=== PATIENT | female | born 1995 | race African-American/Black ===

== ENCOUNTER 2020-08-09 17:57 | Emergency (ER) | payer OTHER ==
[~2020-08-09] VITALS: Ht 149.9 cm; Wt 50.8 kg
--- NOTE | 2020-08-09 18:13 | Emergency Room Report ---
History of Present Illness General Chief Complaint: Female Urogenital Problems Source: Patient (Neeru Sharif) Present Illness HPI 25-year-old female presents to the emergency department complaining of 3 out of 10 severity low back pain in addition to urinary frequency x1 week. She denies dysuria or hematuria. Denies fevers or chills. She denies suspicion of . Patient denies vaginal discharge. Patient denies abdominal pain or tenderness. She denies nausea or vomiting. She denies headache. She denies constipation or diarrhea. (Neeru Sharif) Allergies: Coded Allergies: No Known Allergies (Unverified , 08/09/20) COVID-19 Screening Contact w/high risk pt: No Experienced COVID-19 symptoms?: No COVID-19 Testing performed CHECK EXAMINER: No (Neeru Sharif) Patient History Past Medical History: see triage record Past Surgical History: none Pertinent Family History: none Last Menstrual Period: 06/25/20 Reviewed Nursing Documentation: PMH: Agreed; PSxH: Agreed (Neeru Sharif) Nursing Documentation-PMH Past Medical History: No Stated History (Neeru Sharif) Review of Systems All Other Systems: negative except mentioned in HPI (Neeru Sharif) Physical Exam Vital Signs Date Time Temp Pulse Resp B/P (MAP) Pulse Ox O2 Delivery O2 Flow Rate FiO2 08/09/20 18:00 98.8 100 16 119/72 (88) 99 Room Air Sp02 EP Interpretation: reviewed, normal General Appearance: no apparent distress, alert, GCS 15, non-toxic Head: normocephalic, atraumatic Eyes: bilateral eye normal inspection, bilateral eye PERRL ENT: hearing grossly normal, normal voice Neck: full range of motion Respiratory: lungs clear, normal breath sounds, speaking full sentences Cardiovascular #1: regular rate, rhythm Gastrointestinal: normal bowel sounds, non tender, soft, non-distended Genitourinary: normal inspection, no CVA tenderness Musculoskeletal: back normal, normal range of motion, gait/station normal, non- tender Neurologic: alert, motor strength/tone normal, oriented x3, sensory intact, responsive, speech normal Psychiatric: judgement/insight normal Skin: normal color (Neeru Sharif) Medical Decision Making PA Attestation Dr. Barragan is my supervising Physician whom patient management has been discussed with. (Neeru Sharif) Diagnostic Impression: Primary Impression: Urinary frequency Additional Impressions: Qualified Codes: Z34.90 - Encounter for supervision of normal , unspecified, unspecified trimester UTI (urinary tract infection) Qualified Codes: N39.0 - Urinary tract infection, site not specified ER Course 25-year-old female presents to the emergency department complaining of 3 out of 10 severity low back pain in addition to urinary frequency x1 week. She denies dysuria or hematuria. Denies fevers or chills. She denies suspicion of . Patient denies vaginal discharge. Patient denies abdominal pain or tenderness. She denies nausea or vomiting. She denies headache. She denies constipation or diarrhea. Ddx considered but are not limited to UTi , Pyelo, STI, Stone, Cystitis Vital signs: are WNL, pt. is afebrile H&PE are most consistent with UTI ORDERS: - UA labs are attached ED INTERVENTIONS: None required at this time. DISCHARGE: At this time pt. is stable for d/c to home. Will provide printed patient care instructions, and any necessary prescriptions. Care plan and follow up instructions have been discussed with the patient prior to discharge. (Neeru Sharif) ER Course 25-year-old female here with UTI. U is positive. Ultrasound confirms intrauterine . No heart activity found yet as is early. Unlikely ruptured ectopic at this time point, patients abdomen is not peritoneal, no significant tenderness. She has remained hemodynamically stable in ED. The patients presentation is not consistent with hemorrhagic ovarian cyst or torsion, and has no significant tenderness on exam. The patient appears stable for discharge home and follow up here in the ED in 12 -24 hrs for repeat HCG quant testing, reevaluation and further treatment. Will DC with Keflex. UCx will be sent. Pt advised to follow up with [facility] in AM for referral for care. She verbalizes her understanding of this. Counseled patient to stop smoking marijuna and to stop drinking alcohol. She is unwilling to wait for bhcg quant and states she needs to go and would like a call at [phone]. (Mulu Barragan D.O.) CT/MRI/US Diagnostic Results CT/MRI/US Diagnostic Results : Imaging Test Ordered: US Pelvic OB Impression official radiology report is pending at time of sign out (Neeru Sharif) CT/MRI/US Diagnostic Results : Impression US OB Transvaginal EXAM: US Pelvis Transvaginal FINDINGS: Uterus: Measures 8.8 x 3.8 x 4.3 cm. Gestational sac identified within the endometrial cavity, with mean sac diameter measuring 1.59 cm. Yolk sac noted. No pole identified on this exam. Cervix is long and closed. Placenta/amniotic fluid: Cannot be adequately evaluated due to the early gestational age. Ovaries: The right ovary measures 2.3 x 2.4 x 3.7 cm. Probable corpus luteum in the right ovary. The left ovary measures 2.5 x 1.9 x 2.7 cm. The ovaries demonstrate normal color flow. Other: No free fluid is identified. No adnexal mass. LMP: 06/25/2020 GA by LMP: 6 weeks 3 days ALONDRA by LMP: 04/01/2021 Average ultrasound age: 5 weeks 6 days ALONDRA by ultrasound: 04/05/2021 IMPRESSION: Intrauterine gestational sac with yolk sac noted. No pole identified at this time. Findings may be due to early stage of . Please correlate with serial beta hCG measurements and short-term follow- up exam if clinically indicated. Dictated By: Thuan Contreras MD (Mulu Barragan D.O.) Last Vital Signs Date Time Temp Pulse Resp B/P (MAP) Pulse Ox O2 Delivery O2 Flow Rate FiO2 08/09/20 18:00 98.8 100 16 119/72 (88) 99 Room Air (Neeru Sharif) Reevaluation Time: 20:22 Status: improved (Mulu Barragan D.O.) Disposition: HOME, SELF-CARE Admit Decision Time: 20:22 (Mulu Barragan D.O.) Condition: Stable Scripts Cephalexin* (KEFLEX*) 500 Mg Capsule 500 MG ORAL EVERY 12 HOURS, #14 CAP 0 Refills Prov: Mulu Barragan D.O. 08/09/20 Patient Instructions: Urinary Tract Infection Additional Instructions: Take medications as directed. Follow up with a OBGYN within 3 days, even if your symptoms have resolved. To have repeat Hcg Quant blood work and US performed Return sooner to ED if new symptoms occur, or current symptoms become worse. - Please note that this Emergency Department Report was dictated using [employer] machine operator technology software, occasionally this can lead to erroneous entry secondary to interpretation by the dictation equipment. Neeru Sharif Aug 09, 2020 18:13 Mulu Barragan D.O. Aug 09, 2020 20:26
[2020-08-09 18:20] VITALS: BP 119/72
[2020-08-09 18:45] LABS: APPEARANCE,URINE SLIGHTLY CLOUDY; BILIRUBIN, URINE NEGATIVE (NEGATIVE); COLOR,URINE PALE YELLOW; GLUCOSE, URINE (UA) NEGATIVE (NEGATIVE); KETONES,URINE NEGATIVE (NEGATIVE); LEUKOCYTE ESTERASE ,URINE 2+ (NEGATIVE); NITRITE,URINE NEGATIVE (NEGATIVE); PH,URINE 5 (4.5-8.0); PROTEIN,URINE NEGATIVE (NEGATIVE); UROBILINOGEN,URINE NORMAL MG/DL (0.0-1.0)
--- NOTE | 2020-08-09 19:44 | Diagnostic Imaging Report ---
EXAM: US First Trimester , Transabdominal CLINICAL HISTORY: PAIN TECHNIQUE: Real-time transabdominal obstetrical ultrasound of the maternal pelvis and a first trimester with image documentation. COMPARISON: None FINDINGS: Uterus: Measures 8.8 x 3.8 x 4.3 cm. Gestational sac identified within the endometrial cavity, with mean sac diameter measuring 1.59 cm. Yolk sac noted. No pole identified on this exam. Cervix is long and closed. Placenta/amniotic fluid: Cannot be adequately evaluated due to the early gestational age. Ovaries: The right ovary measures 2.3 x 2.4 x 3.7 cm. Probable corpus luteum in the right ovary. The left ovary measures 2.5 x 1.9 x 2.7 cm. The ovaries demonstrate normal color flow. Other: No free fluid is identified. No adnexal mass. LMP: 06/25/2020 GA by LMP: 6 weeks 3 days ALONDRA by LMP: 04/01/2021 Average ultrasound age: 5 weeks 6 days ALONDRA by ultrasound: 04/05/2021 IMPRESSION: Intrauterine gestational sac with yolk sac noted. No pole identified at this time. Findings may be due to early stage of . Please correlate with serial beta hCG measurements and short-term follow-up exam if clinically indicated.
--- NOTE | 2020-08-09 19:45 | Diagnostic Imaging Report ---
EXAM: US Pelvis Transvaginal CLINICAL HISTORY: PAIN TECHNIQUE: Real-time transvaginal pelvic ultrasound with image documentation. Transvaginal imaging was used for better evaluation of the endometrium and adnexa. COMPARISON: None FINDINGS: Uterus: Measures 8.8 x 3.8 x 4.3 cm. Gestational sac identified within the endometrial cavity, with mean sac diameter measuring 1.59 cm. Yolk sac noted. No pole identified on this exam. Cervix is long and closed. Placenta/amniotic fluid: Cannot be adequately evaluated due to the early gestational age. Ovaries: The right ovary measures 2.3 x 2.4 x 3.7 cm. Probable corpus luteum in the right ovary. The left ovary measures 2.5 x 1.9 x 2.7 cm. The ovaries demonstrate normal color flow. Other: No free fluid is identified. No adnexal mass. LMP: 06/25/2020 GA by LMP: 6 weeks 3 days ALONDRA by LMP: 04/01/2021 Average ultrasound age: 5 weeks 6 days ALONDRA by ultrasound: 04/05/2021 IMPRESSION: Intrauterine gestational sac with yolk sac noted. No pole identified at this time. Findings may be due to early stage of . Please correlate with serial beta hCG measurements and short-term follow- up exam if clinically indicated.
[2020-08-09] MEDS ORDERED: CEPHALEXIN500 MG ORAL (20:12)
[2020-08-09 20:20] VITALS: BP 119/72
== END 2020-08-09 20:20 | disposition home or self-care (01) ==
LOC: EMR 18:25
DX: O23.40 Unspecified infection of urinary tract in pregnancy, unspecified trimester (principal); Z3A.00 Weeks of gestation of pregnancy not specified
CPT/HCPCS: 76801; 76817; 81003; 81025; 84702; 84703; 99284